=== PATIENT | male | born 1935 | race Caucasian/White ===

== ENCOUNTER 2020-11-18 09:33 | Day surgery (SDC) | payer MEDICARE, OTHER ==
[~2020-11-18] VITALS: Ht 175.3 cm; Wt 106.8 kg
[2020-11-18 10:12] VITALS: BP 165/82
[2020-11-18 10:37] LABS: BASOPHILS % (AUTO) 1 % (0-1); EOSINOPHILS % (AUTO) 2 % (1-7); LYMPHOCYTES % (AUTO) 24 % (22-44); MD NO; MEAN CORPUSCULAR HEMOGLOBIN 32.9 pg (27.5-34.5); MEAN CORPUSCULAR HGB CONC 34.8 g/dL (33.2-36.2); MEAN PLATELET VOLUME 9.5 fL (7.4-10.4); MONOCYTES % (AUTO) 11 % (2-9); NEUTROPHILS % (AUTO) 63 % (42-75); PLATELET COUNT 177 x10^3/uL (130-400); RED BLOOD COUNT 4.88 x10^6/uL (4.38-5.82); RED CELL DISTRIBUTION WIDTH 13.6 % (9.4-14.8)
[2020-11-18] MEDS ORDERED: DOXY20TA5 PO (10:37)
[2020-11-18] MEDS ORDERED: CYAN25003 PO (10:37)
[2020-11-18] MEDS ORDERED: CALC-709 PO (10:37)
[2020-11-18] MEDS ORDERED: LEVO137T2 PO (10:37)
[2020-11-18] MEDS ORDERED: IPRA3AMP30 NEB (10:37)
[2020-11-18] MEDS ORDERED: BUDE10.2 INH (10:37)
[2020-11-18] MEDS ORDERED: HYDR25TA6 PO (10:37)
[2020-11-18] MEDS ORDERED: ATOR40TA PO (10:37)
[2020-11-18] MEDS ORDERED: LATA7.5D EACHEYE (10:37)
[2020-11-18] MEDS ORDERED: CHOL10003 PO (10:37)
[2020-11-18] MEDS ORDERED: ASCO100018 PO (10:37)
[2020-11-18] MEDS ORDERED: RISE150T3 PO (10:37)
[2020-11-18] MEDS ORDERED: GEMF-31 PO (10:37)
[2020-11-18] MEDS ORDERED: IRON1TAB60 PO (10:37)
[2020-11-18] MEDS ORDERED: MULT-249 PO (10:37)
[2020-11-18] MEDS ORDERED: ALBU18HF INH (10:37)
[2020-11-18 10:44] LABS: ANION GAP 4 mmol/L (5-15); CALCIUM 9.4 mg/dL (8.5-10.1); CHLORIDE 101 mmol/L (98-107); CREATININE 0.91 mg/dL (0.7-1.3)
[2020-11-18] MEDS ORDERED: SODIUM CHLORIDE 0.9% 1,000 ML IV SCH ×2 (11:00→14:00)
[2020-11-18] MEDS ORDERED: FENTANYL PF 100 MCG/2ML ONE (11:37)
[2020-11-18] MEDS ORDERED: VERAPAMIL 2.5 MG/ML, 2ML ONE (11:38)
[2020-11-18] MEDS ORDERED: MIDAZOLAM 1 MG/ML, 5ML ONE (11:38)
[2020-11-18] MEDS ORDERED: BIVALIRUDIN 250 MG ONE (11:38)
[2020-11-18] MEDS ORDERED: HEPARIN 1,000 UNITS/ML, 10ML ONE (11:38)
[2020-11-18] MEDS ORDERED: LIDOCAINE-MPF 1%, 5ML ONE (11:38)
[2020-11-18] MEDS ORDERED: TICAGRELOR 90 MG TABLET ONE (11:38)
== END 2020-11-18 14:46 | disposition home or self-care (01) ==
LOC: CACL 09:33
PROVIDERS: ATTEND Internal Medicine Cardiovascular Disease
DX: Z01.810 Encounter for preprocedural cardiovascular examination (principal); I35.0 Nonrheumatic aortic (valve) stenosis; I25.10 Atherosclerotic heart disease of native coronary artery without angina pectoris; I11.0 Hypertensive heart disease with heart failure; I50.33 Acute on chronic diastolic (congestive) heart failure; E78.5 Hyperlipidemia, unspecified; E11.9 Type 2 diabetes mellitus without complications; J44.9 Chronic obstructive pulmonary disease, unspecified; Z79.890 Hormone replacement therapy; Z79.899 Other long term (current) drug therapy; Z87.891 Personal history of nicotine dependence; Z96.653 Presence of artificial knee joint, bilateral; Z98.890 Other specified postprocedural states; Z99.81 Dependence on supplemental oxygen
CPT/HCPCS: 36415; 80048; 85025; 93454; 99156; C1769; C1894; J1644; J2250; J3010; Q9967; J0583

== ENCOUNTER → 2020-11-24 | Outpatient (CLI) | payer MEDICARE, OTHER ==
[~2020-11-24] MED LIST: ALBU18HF INH; ASCO100018 PO; ATOR40TA PO; BUDE10.2 INH; CALC-709 PO; CHOL10003 PO; CYAN25003 PO; DOXY20TA5 PO; GEMF-31 PO; HYDR25TA6 PO; IPRA3AMP30 NEB; IRON1TAB60 PO; LATA7.5D EACHEYE; LEVO137T2 PO; MULT-249 PO; RISE150T3 PO; VISIPAQUE 320 MG/ML, 150ML BOTTLE ONE
== END | disposition home or self-care (01) ==
LOC: CVU 08:58
PROVIDERS: ATTEND Internal Medicine Cardiovascular Disease
DX: Z01.810 Encounter for preprocedural cardiovascular examination (principal); I65.29 Occlusion and stenosis of unspecified carotid artery; J94.8 Other specified pleural conditions; R91.1 Solitary pulmonary nodule; N20.0 Calculus of kidney; I65.23 Occlusion and stenosis of bilateral carotid arteries; E66.01 Morbid (severe) obesity due to excess calories; I50.33 Acute on chronic diastolic (congestive) heart failure; Z99.81 Dependence on supplemental oxygen
CPT/HCPCS: 71275; 74174; 93880; Q9967

== ENCOUNTER 2020-12-31 13:15 | Outpatient (CLI) | payer MEDICARE, OTHER ==
[~2020-12-31 13:15] MED LIST changes: +ASPI81TA45 PO; +BRIM5DRO2 OP; +LOSA25TA25 PO; +TIOT4MIS5 INH; -VISIPAQUE 320 MG/ML, 150ML BOTTLE ONE
== END 2020-12-31 23:59 | disposition home or self-care (01) ==
LOC: CFH 13:15
PROVIDERS: ATTEND Internal Medicine Cardiovascular Disease
DX: Z01.810 Encounter for preprocedural cardiovascular examination (principal); R06.02 Shortness of breath; I65.29 Occlusion and stenosis of unspecified carotid artery; Z95.2 Presence of prosthetic heart valve
CPT/HCPCS: 93306

== ENCOUNTER → 2021-03-31 | Outpatient (CLI) | payer MEDICARE, OTHER | END | disposition home or self-care (01) | LOC: CFH 08:20 | PROVIDERS: ATTEND Internal Medicine Critical Care Medicine | DX: R91.1 Solitary pulmonary nodule (principal); J44.9 Chronic obstructive pulmonary disease, unspecified | CPT/HCPCS: 71250 ==